=== PATIENT | male | born 1955 | race Caucasian/White ===

== ENCOUNTER 2018-04-07 20:21 | Emergency (ER) | payer MEDICARE ==
[~2018-04-07] VITALS: Ht 167.6 cm; Wt 70.3 kg
--- NOTE | 2018-04-07 20:30 | NUR ---
PT BIBRA COMPLAINING OF NAUSEA/VOMITING. PT STATES THAT HE VOMITTED AND CALLED EMS. PT RESPIRATIONS ARE EVEN AND UNLABORED. PT AMBULATORY WITH STEADY GAIT. NAD NOTED AT THE TIME. PT PUT ON THE MONITOR AND PENDING EVAL FROM ER MD.
--- NOTE | 2018-04-07 21:00 | NUR ---
Patient is resting comfortably in bed with eyes closed. Easily aroused. VSS
[2018-04-07] MEDS ORDERED: METOCLOPRAMIDE HCL 10 MG TABLET ONE (21:25)
[2018-04-07] MEDS ORDERED: IBUPROFEN 600 MG TABLET PO ONE ×2 (21:25→21:30)
[2018-04-07] MEDS ORDERED: METOCLOPRAMIDE HCL 10 MG TABLET PO ONE (21:30)
[2018-04-07 21:57] VITALS: BP 139/76
== END 2018-04-07 22:07 | disposition home or self-care (01) ==
LOC: ER 20:25
DX: R11.2 Nausea with vomiting, unspecified (principal); R51 Headache; E78.5 Hyperlipidemia, unspecified; Z59.0 Homelessness
CPT/HCPCS: J8597